=== PATIENT | male | born 1990 | race American Indian/Alaskan Native ===

== ENCOUNTER 2016-11-20 23:13 | Emergency (ER) | payer OTHER ==
[2016-11-20 23:14] VITALS: BMI 23.3
[2016-11-20 23:23] VITALS: PULSE 61; RESP 16; TEMP 98.7; O2SAT 99
--- NOTE | 2016-11-20 23:57 | ED PDOC ---
HPI: Wound Care - HPI Time Seen by Provider: 11/20/16 23:33 Chief Complaint (Nursing): Abnormal Skin Integrity Chief Complaint (Provider): right hand 2nd digit laceration History Per: Patient History Of Present Illness: 26 y/o male presents for eval of laceration to right hand 2nd digit sustained prior to arrival. 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 Denies numbness/weakness right upper extremity, limitation of movement. Tetanus up to date. Past Medical History Reviewed: Historical Data, Nursing Documentation, Vital Signs Vital Signs: Last Vital Signs Temp 98.7 F 11/20/16 23:21 Pulse 61 11/20/16 23:21 Resp 16 11/20/16 23:21 BP 96/49 L 11/20/16 23:21 Pulse Ox 99 11/20/16 23:21 - Medical History PMH: No Chronic Diseases Denies: Depression - Surgical History Surgical History: No Surg Hx - Family History Family History: States: Unknown Family Hx - Living Arrangements Living Arrangements: With Family - Immunization History Hx Tetanus Toxoid Vaccination: No Hx Influenza Vaccination: No Hx Pneumococcal Vaccination: No - Home Medications Home Medications: Ambulatory Orders Medication Instructions Recorded Ibuprofen [Motrin] 600 mg PO Q6H #20 tab 06/07/16 Ondansetron [Zofran Odt] 4 mg PO Q6 PRN #12 odt 06/10/16 - Allergies Allergies/Adverse Reactions: Allergies Allergy/AdvReac Type Severity Reaction Status Date / Time No Known Allergies Allergy Verified 11/20/16 23:21 Review of Systems ROS Statement: Except As Marked, All Systems Reviewed And Found Negative Musculoskeletal: Positive for: Hand Pain (right hand 2nd digit laceration) Physical Exam - Reviewed Nursing Documentation Reviewed: Yes Vital Signs Reviewed: Yes - Physical Exam Appears: Positive for: Well, Non-toxic, No Acute Distress Head Exam: Positive for: ATRAUMATIC, NORMAL INSPECTION, NORMOCEPHALIC Pulses-Radial (L): 2+ Pulses-Radial (R): 2+ Extremity: Positive for: Normal ROM, Capillary Refill, Other (1.5cm superficial linear laceration distal palmar right hand 2nd digit. No active bleeding, surrounding swelling/tenderness noted. Distal NV, motor intact). Negative for : Deformity Neurologic/Psych: Negative for: Motor/Sensory Deficits - ECG O2 Sat by Pulse Oximetry: 99 Procedure: Wound Repair - Time Performed Time Performed: 00:00 - Time Out Time Out: Side verified, Site verified, Patient ID confirmed, Sterile procedures obs. - Consent Obtained Consent obtained: Verbal - Performed by Performed by: Mid-level Provider - Indications Indication(s):: Laceration - Location Finger:: Index Toe:: Right Shape:: Linear Dimensions Length cm: 1.5cm Dimensions width cm: 0.2cm Depth:: Epidermis - Wound repair method [place]:: Tissue glue, Steri-strips (finger splint applied) Medical Decision Making Medical Decision Making: Patient educated on wound care, follow up PMD 2-3 days. Return to ED for worsening/concerning symptoms. Disposition - Clinical Impression Clinical Impression: Finger laceration - Patient ED Disposition Is Patient to be Admitted: No Counseled Patient/Family Regarding: Studies Performed, Diagnosis, Need For Followup - Disposition Disposition: Routine/Home Disposition Time: 00:33 Condition: GOOD Instructions: Laceration (ED), Skin Adhesive Care (ED), Steristrips (ED) Forms: [facility] ED School/Work Excuse
[2016-11-21 00:37] VITALS: BP 102/60
== END 2016-11-21 00:37 | disposition home or self-care (01) ==
LOC: H.ER 23:13
DX: S61.210A Laceration without foreign body of right index finger without damage to nail, initial encounter (principal); W26.0XXA Contact with knife, initial encounter; Y93.G1 Activity, food preparation and clean up; Y92.9 Unspecified place or not applicable; Y99.0 Civilian activity done for income or pay

== ENCOUNTER 2016-11-22 21:20 | Emergency (ER) | payer SELFPAY ==
[2016-11-22 21:20] VITALS: BMI 23.3
[2016-11-22 21:26] VITALS: BP 118/54; PULSE 78; RESP 18; TEMP 99.1; O2SAT 99
--- NOTE | 2016-11-22 21:34 | ED PDOC ---
Upper Extremity Pain/Injury Time Seen by Provider: 11/22/16 21:39 Chief Complaint (Nursing): Finger,Hand,&Wrist Chief Complaint (Provider): wound check History Per: Patient History/Exam Limitations: no limitations Onset/Duration Of Symptoms: Days (splint placed x2days ago, 11/20/16) Current Symptoms Are (Timing): Better Additional Complaint(s): Kirk Mariano JR is a 26 year old male who presents to the emergency department for a would check up of the right hand (index finger) after a laceration was sustained while at work on 11/20/2016. Denies fever. Past Medical History Reviewed: Historical Data, Nursing Documentation, Vital Signs Vital Signs: Last Vital Signs Temp 99.1 F 11/22/16 21:22 Pulse 78 11/22/16 21:22 Resp 18 11/22/16 21:22 BP 118/54 L 11/22/16 21:22 Pulse Ox 99 11/22/16 21:22 - Medical History PMH: Denies: Depression - Family History Family History: States: No Known Family Hx, Unknown Family Hx - Social History Current smoker - smoking cessation education provided: No Alcohol: None Drugs: Denies - Immunization History Hx Tetanus Toxoid Vaccination: No Hx Influenza Vaccination: No Hx Pneumococcal Vaccination: No - Home Medications Home Medications: Ambulatory Orders Medication Instructions Recorded Ibuprofen [Motrin] 600 mg PO Q6H #20 tab 06/07/16 Ondansetron [Zofran Odt] 4 mg PO Q6 PRN #12 odt 06/10/16 - Allergies Allergies/Adverse Reactions: Allergies Allergy/AdvReac Type Severity Reaction Status Date / Time No Known Allergies Allergy Verified 11/20/16 23:21 Review of Systems ROS Statement: Except As Marked, All Systems Reviewed And Found Negative Skin: Positive for: Other (wound check for laceration of the second digit of the right hand) Physical Exam - Reviewed Nursing Documentation Reviewed: Yes Vital Signs Reviewed: Yes - Physical Exam Appears: Positive for: Well, Non-toxic, No Acute Distress Head Exam: Positive for: ATRAUMATIC, NORMAL INSPECTION, NORMOCEPHALIC Skin: Positive for: Normal Color, Warm, Dry Extremity: Positive for: Normal ROM (Well healing superficial laceration of the second digit to the distal region of the right hand). Negative for: Other ( signs of erythema, discharge, or infections.) Neurologic/Psych: Positive for: Alert, Oriented - ECG O2 Sat by Pulse Oximetry: 99 (RA) Pulse Ox Interpretation: Normal Medical Decision Making Medical Decision Making: Initial Impression: Second digit of the right hand wound check Initial Plan: --Wound check up 21:48 --Patient is medically stable, and requires no further treatment in the ED at this time. Patient will be discharged home. Counseling was provided and all questions were answered regarding diagnosis and need for follow up with PCP. There is agreement to discharge plan. Return if symptoms persist or worsen. Scribe Attestation: Documented by Yvette Whalen acting as a scribe for ANGI Newell. Scribe Attestation: All medical record entries made by the Scribe were at my direction and personally dictated by me. I have reviewed the chart and agree that the record accurately reflects my personal performance of the history, physical exam, medical decision making, and the department course for this patient. I have also personally directed, reviewed, and agree with the discharge instructions and disposition. Disposition - Clinical Impression Clinical Impression: Visit for wound check - Patient ED Disposition Is Patient to be Admitted: No Doctor Will See Patient In The: Office Counseled Patient/Family Regarding: Diagnosis - Disposition Disposition: Routine/Home Disposition Time: 21:48 Condition: FAIR Instructions: Skin Adhesive Care (ED) Forms: [facility] ED School/Work Excuse
== END 2016-11-22 21:48 | disposition home or self-care (01) ==
LOC: H.ER 21:20
DX: Z48.00 Encounter for change or removal of nonsurgical wound dressing (principal)